=== PATIENT | male | born 1985 | race Caucasian/White ===

== ENCOUNTER 2017-09-27 05:51 | Emergency (ER) | payer SELFPAY ==
[2017-09-27 06:07] VITALS: BMI 34.0
--- NOTE | 2017-09-27 07:24 | ED PDOC ---
Arrival/HPI <Toy Vivas - Last Filed: 09/27/17 15:56> <Karis Paz - Last Filed: 09/27/17 18:10> - General Chief Complaint: Anxiety Time Seen by Provider: 09/27/17 07:03 - History of Present Illness Narrative History of Present Illness (Text): 32 year old male with no relevant PMH presents with diaphoresis and a feeling like he was going to pass out 4 hours ago. 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 He also mentioned sharp chest pain exacerbated by movement that he felt while he was working last night. He has had this pain before and has not done anything for the pain. The pain stays for an hour and comes and goes. He also reports tingling and numbness in both of his hands during his episode of chest pain last night. He reported a right sided pressure like headache that radiates to his neck, reports photophobia, nausea, and vomiting, but denies phonophobia last night, as well. He reports he had these sensations multiple times during childhood. (Toy Vivas) Past Medical History - Provider Review Nursing Documentation Reviewed: Yes - Psychiatric Hx Substance Use: No <Toy Vivas - Last Filed: 09/27/17 15:56> Family/Social History - Physician Review Nursing Documentation Reviewed: Yes Family/Social History: Unknown Family HX Smoking Status: Light Smoker < 10 Cigarettes Daily Hx Alcohol Use: No Hx Substance Use: No <Toy Vivas - Last Filed: 09/27/17 15:56> Allergies/Home Meds <Toy Vivas - Last Filed: 09/27/17 15:56> <Karis Paz - Last Filed: 09/27/17 18:10> Allergies/Adverse Reactions: Allergies No Known Allergies Allergy (Verified 09/27/17 06:07) Home Medications: Home Meds Medication Instructions Recorded Confirmed No Known Home Med 09/27/17 09/27/17 Review of Systems - Physician Review All systems were reviewed & negative as marked: Yes - Review of Systems Constitutional: Normal Eyes: Photophobia ENT: Normal Respiratory: SOB Cardiovascular: Chest Pain Gastrointestinal: Nausea Musculoskeletal: Neck Pain Skin: Normal Neurological: Headache (right sided pressure) <Toy Vivas - Last Filed: 09/27/17 15:56> Physical Exam Temperature: Afebrile Blood Pressure: Normal Pulse: Regular Respiratory Rate: Normal Appearance: Positive for: Well-Appearing Pain Distress: Mild Mental Status: Positive for: Alert and Oriented X 3, Agitated Finger Stick Blood Glucose: 99 - Systems Exam Head: Present: Atraumatic, Normocephalic Pupils: Present: PERRL Extroacular Muscles: Present: EOMI Nose (External): Present: Atraumatic Respiratory/Chest: Present: Clear to Auscultation Cardiovascular: Present: Regular Rate and Rhythm Abdomen: Present: Normal Bowel Sounds. No: Tenderness, Distention Upper Extremity: Present: Normal Inspection, Normal ROM, NORMAL PULSES Lower Extremity: Present: Normal Inspection, NORMAL PULSES, Normal ROM Neurological: Present: GCS=15, CN II-XII Intact, Speech Normal, Motor Func Grossly Intact Skin: Present: Warm, Dry, Normal Color, Other (multiple tattoos) Psychiatric: Present: Alert, Oriented x 3 <Toy Vivas - Last Filed: 09/27/17 15:56> <Karis Paz - Last Filed: 09/27/17 18:10> Vital Signs Temp Pulse Resp BP Pulse Ox 09/27/17 09:06 98 F 76 19 114/52 L 99 09/27/17 08:03 66 19 98 09/27/17 06:17 98.5 F 66 18 134/81 97 Medical Decision Making - RAD Interpretation 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 Assessment: possible panic attack, tension headache vs migrane vs cluster headache Rule out [place], pneumonia, PE, asthma exacerbation, anemia Plan: IV fluids 0.9% NS ordered for dehydration. IVP reglan and toradol for headache. Zofran IVP ordered for nausea CBC, CMP to rule out anemia and electrolyte imbalances as the cause for his symptoms. CXR ordered to rule out pneumonia, pulmonary causes for his symptoms. Urine drug screen to screen for drug abuse as cause for his symptoms. EKG to rule out [place], arrhythmia as cause for his symptoms. 09/27/17 07:47 EKG: normal sinus rhythm NC: 152 QRS: 88 QT/QTc: 398/413 Cardiac cause for symptoms seems unlikely. 09/27/17 08:30 CBC and CMP are unremarkable except for an ALT of 91, ruling out anemia and electrolyte causes for his symptoms. Chest X ray is unremarkable, ruling out pneumonia and other pulmonary causes for his symptoms. Patient can be discharged with follow up with PCP. (Toy Vivas) 09/27/17 07:43 32 year old male presents to the Emergency department for evaluation of diaphoresis and near syncopal episode. In agreement with resident note, which includes further HPI details. Patient was seen and evaluated with resident, came up with plan and treatment together. (Karis Paz) - Lab Interpretations Lab Results: 09/27/17 07:30 09/27/17 07:30 Lab Results 09/27/17 07:30: Urine Opiates Screen Negative, Urine Methadone Screen Negative, Ur Barbiturates Screen Negative, Ur Phencyclidine Scrn Negative, Ur Amphetamines Screen Negative, U Benzodiazepines Scrn Negative, U Oth Cocaine Metabols Negative, U Cannabinoids Screen Positive H 09/27/17 07:30: Sodium 141, Potassium 3.7, Chloride 102, Carbon Dioxide 27, Anion Gap 16, BUN 13, Creatinine 0.7 L, Est GFR ( Amer) > 60, Est GFR ( Non-Af Amer) > 60, Random Glucose 86, Calcium 8.9, Total Bilirubin 0.5, AST 47, ALT 91 H, Alkaline Phosphatase 48, Total Protein 7.6, Albumin 4.4, Globulin 3.2 , Albumin/Globulin Ratio 1.4 09/27/17 07:30: WBC 5.7, RBC 4.78, Hgb 14.2, Hct 41.5 L, MCV 86.8, MCH 29.7, MCHC 34.2, RDW 12.8, Plt Count 210, MPV 9.7, Gran % 49.2 L, Lymph % (Auto) 38.8 H, [place] % (Auto) 9.1 H, Eos % (Auto) 2.5, Baso % (Auto) 0.4, Gran # 2.81, Lymph # (Auto) 2.2, [place] # (Auto) 0.5, Eos # (Auto) 0.1, Baso # (Auto) 0.02 09/27/17 06:49: POC Glucose (mg/dL) 99 - RAD Interpretation Radiology Orders: 09/27/17 07:19 CHEST PORTABLE [RAD] Stat - Medication Orders Current Medication Orders: Discontinued Medications Sodium Chloride (Sodium Chloride 0.9%) 1,000 mls @ 999 mls/hr IV .Q1H1M STA Stop: 09/27/17 08:26 Last Admin: 09/27/17 07:53 Dose: 999 mls/hr eMAR Start Stop Document 09/27/17 07:53 GMI (Rec: 09/27/17 07:54 GMI [id number]) Intravenous Solution Start Date 09/27/17 Start Time 07:54 End Date 09/27/17 End time 08:58 Total Infusion Time 64 Ketorolac Tromethamine (Toradol) 15 mg IVP STAT STA Stop: 09/27/17 07:18 Last Admin: 09/27/17 07:54 Dose: 15 mg MAR Pain Assessment Document 09/27/17 07:54 GMI (Rec: 09/27/17 07:55 GMI [id number]) Pain Reassessment Is this a pain reassessment? Yes Sleep Is patient sleeping during reassessment? No Presence of Pain Presence of Pain Yes Pain Scale Used Pain Scale Used Numeric Location Upper or Lower Upper Pain Location Body Cotton Classer Description Description Acute Intensity of Pain at present 5 Pain Behavior Facial Grimacing Alleviating Factors/Management Distraction Techniques Alleviating Factors Distraction IVP Administration Document 09/27/17 07:54 GMI (Rec: 09/27/17 07:55 GMI [id number]) Charges for Administration # of IVP Administrations 1 Metoclopramide HCl (Reglan) 10 mg IVP STAT STA Stop: 09/27/17 07:18 Last Admin: 09/27/17 07:54 Dose: 10 mg IVP Administration Document 09/27/17 07:54 GMI (Rec: 09/27/17 07:54 GMI [id number]) Charges for Administration # of IVP Administrations 1 Ondansetron HCl (Zofran Inj) 4 mg IVP STAT STA Stop: 09/27/17 07:51 Last Admin: 09/27/17 07:57 Dose: 4 mg IVP Administration Document 09/27/17 07:57 GMI (Rec: 09/27/17 07:57 GMI [id number]) Charges for Administration # of IVP Administrations 1 - PA / DRAWING KILN SUPERVISOR / Resident Statement / has reviewed & agrees with the documentation as recorded. / has examined the patient and agrees with the treatment plan. <Toy Vivas - Last Filed: 09/27/17 15:56> - PA / DRAWING KILN SUPERVISOR / Resident Statement MELODY has reviewed & agrees with the documentation as recorded. / has examined the patient and agrees with the treatment plan. - Scribe Statement The provider has reviewed the documentation as recorded by the Scribe <Karis Paz - Last Filed: 09/27/17 18:10> - Scribe Statement Pavithra Mejia training under [facility] All medical record entries made by the Scribe were at my direction and personally dictated by me. I have reviewed the chart and agree that the record accurately reflects my personal performance of the history, physical exam, medical decision making, and the department course for this patient. I have also personally directed, reviewed, and agree with the discharge instructions and disposition. (Karis Paz) Disposition/Present on Arrival - Present on Arrival Any Indicators Present on Arrival: No History of DVT/PE: No History of Uncontrolled Diabetes: No Urinary Catheter: No History of Decub. Ulcer: No History Surgical Site Infection Following: None - Disposition Have Diagnosis and Disposition been Completed?: Yes Disposition Time: 08:32 Patient Plan: Discharge <Toy Vivas - Last Filed: 09/27/17 15:56> <Karis Paz - Last Filed: 09/27/17 18:10> - Disposition Diagnosis: Anxiety Disposition: HOME/ ROUTINE Condition: STABLE Additional Instructions: JAZ ANGUIANO, thank you for letting us take care of you today. Your provider was Karis Paz MD and you were treated for ANXIETY. The emergency medical care you received today was directed at your acute symptoms. You were given reglan and toradol for your headache. Chest X ray and EKG were negative. Return to the Emergency Department if your symptoms worsen, do not improve, or if you have any other problems. Please contact [facility] for follow up for your symptoms. Bring any paperwork you were given at discharge with you along with any medications you are taking to your follow up visit. Our treatment cannot replace ongoing medical care by a primary care provider outside of the emergency department. Thank you for allowing the [facility] team to be part of your care today. Referrals: [facility] [Outside] - Follow up with primary Forms: [employer] (Y[place]i)
[2017-09-27] MEDS ORDERED: Sodium Chloride 0.9% 1,000 ML IV STA (07:26)
[2017-09-27 08:03] VITALS: RESP 19
[2017-09-27 08:18] LABS: ALB/GLOB RATIO 1.4 (1.1-1.8); ALBUMIN 4.4 g/dL (3.0-4.8); ALT/SGPT 91 U/L (7-56); AST/SGOT 47 U/L (17-59); BLOOD UREA NITROGEN 13 mg/dL (7-21); CALCIUM 8.9 mg/dL (8.4-10.5); GFR AFRICAN-AMERICAN > 60; GFR NON-AFRICAN AMERICAN > 60
[2017-09-27 08:26] LABS: HEMOGLOBIN 14.2 g/dL (14.0-18.0); RBC 4.78 10^6/uL (3.5-6.1); WHITE BLOOD COUNT 5.7 10^3/ul (4.5-11.0)
[2017-09-27 08:27] LABS: BASO # 0.02 K/mm3 (0.0-2.0); BASO % 0.4 % (0.0-3.0); EOS # 0.1 (0.0-0.7); EOS % 2.5 % (1.5-5.0); GRAN # 2.81 (1.4-6.5); GRAN % 49.2 % (50.0-68.0); LYMPH # 2.2 (1.2-3.4); LYMPH % 38.8 % (22.0-35.0); MEAN CELL VOLUME 86.8 fl (80.0-105.0); MEAN CORPUSCULAR HEMOGLOBIN 29.7 pg (25.0-35.0); MEAN CORPUSCULAR HGB CONC 34.2 g/dl (31.0-37.0); MEAN PLATELET VOLUME 9.7 fl (7.0-11.0); MONO # 0.5 (0.1-0.6); MONO % 9.1 % (1.0-6.0); RED CELL DISTRIBUTION WIDTH 12.8 % (11.5-14.5)
[2017-09-27 08:32] LABS: BARBITURATES, UR NEGATIVE (NEGATIVE); BENZODIAZEPINES, UR NEGATIVE (NEGATIVE); OPIATES, UR NEGATIVE (NEGATIVE); PHENCYCLIDINE, UR NEGATIVE (NEGATIVE)
--- NOTE | 2017-09-27 08:42 | RAD ---
Date of service: 09/27/2017 HISTORY: r/o infiltrate COMPARISON: No prior. FINDINGS: LUNGS: The lungs are clear. PLEURA: No significant pleural effusion identified, no pneumothorax apparent. CARDIOVASCULAR: Normal. OSSEOUS STRUCTURES: No significant abnormalities. VISUALIZED UPPER ABDOMEN: Normal. OTHER FINDINGS: None. IMPRESSION: No active pulmonary disease.
[2017-09-27 09:08] VITALS: BP 114/52; PULSE 76; TEMP 98; O2SAT 99
--- NOTE | 2017-09-28 12:27 | CARD ---
APPROVED REPORT Date of service: 09/27/2017 EKG Measurement Heart [id number] <Conclusion> Normal sinus rhythm Normal ECG
== END 2017-09-27 09:06 | disposition home or self-care (01) ==
LOC: ED 05:51
DX: F41.9 Anxiety disorder, unspecified (principal); F17.210 Nicotine dependence, cigarettes, uncomplicated
CPT/HCPCS: 71045; 80053; 82948; 85025; 93005; 96361; 96374; 96375; 99284; G0480; J1885; J2405; J2765; J7030

== ENCOUNTER 2017-10-10 15:22 | Emergency (ER) | payer SELFPAY ==
[2017-10-10 15:24] VITALS: BMI 35.7
[2017-10-10] MEDS ORDERED: Oxycodone/Acetaminophen 5/325 mg Tab PO STA (15:39)
--- NOTE | 2017-10-10 15:43 | ED PDOC ---
Arrival/HPI - General Chief Complaint: Dental Pain Time Seen by Provider: 10/10/17 15:24 Historian: Patient - History of Present Illness Narrative History of Present Illness (Text): 10/10/17 15:40 32yo male with no pmhx who present with complaint of left upper toothache. States he had a filling that was placed recently and it fell off this afternoon. Reports sharp pain to the area. States he applied Orajel without relieve. He states that he have appointment with his Dentist on Friday. Denies any other complaint. Past Medical History - Provider Review Nursing Documentation Reviewed: Yes - Infectious Disease Hx of Infectious Diseases: None - Psychiatric Hx Substance Use: No Family/Social History - Physician Review Nursing Documentation Reviewed: Yes Family/Social History: Unknown Family HX Smoking Status: Light Smoker < 10 Cigarettes Daily Hx Alcohol Use: No Hx Substance Use: No Allergies/Home Meds Allergies/Adverse Reactions: Allergies No Known Allergies Allergy (Verified 09/27/17 06:07) Review of Systems - Physician Review All systems were reviewed & negative as marked: Yes - Review of Systems Constitutional: Normal Eyes: Normal ENT: Other (Dental pain) Respiratory: Normal Cardiovascular: Normal Gastrointestinal: Normal Genitourinary Male: Normal Musculoskeletal: Normal Skin: Normal Neurological: Normal Endocrine: Normal Hemo/Lymphatic: Normal Psychiatric: Normal Physical Exam Vital Signs Reviewed: Yes Vital Signs Temp Pulse Resp BP Pulse Ox 10/10/17 15:27 139/91 H 10/10/17 15:24 98.9 F 67 18 156/106 H 99 Temperature: Afebrile Blood Pressure: Normal Pulse: Regular Respiratory Rate: Normal Appearance: Positive for: Well-Appearing, Non-Toxic, Comfortable Pain Distress: None Mental Status: Positive for: Alert and Oriented X 3 - Systems Exam Head: Present: Atraumatic, Normocephalic Pupils: Present: PERRL Extroacular Muscles: Present: EOMI Conjunctiva: Present: Normal Mouth: Present: Moist Mucous Membranes. No: Normal Teeth (Left upper lateral incissor partially avulsed. No gingival swelling. No loose tooth) Neck: Present: Normal Range of Motion Respiratory/Chest: Present: Clear to Auscultation, Good Air Exchange. No: Respiratory Distress, Accessory Muscle Use Cardiovascular: Present: Regular Rate and Rhythm, Normal S1, S2. No: Murmurs Abdomen: No: Tenderness, Distention, Peritoneal Signs Back: Present: Normal Inspection Upper Extremity: Present: Normal Inspection. No: Cyanosis, Edema Lower Extremity: Present: Normal Inspection. No: Edema Neurological: Present: GCS=15, CN II-XII Intact, Speech Normal Skin: Present: Warm, Dry, Normal Color. No: Rashes Psychiatric: Present: Alert, Oriented x 3, Normal Insight, Normal Concentration Disposition/Present on Arrival - Present on Arrival Any Indicators Present on Arrival: No History of DVT/PE: No History of Uncontrolled Diabetes: No Urinary Catheter: No History of Decub. Ulcer: No History Surgical Site Infection Following: None - Disposition Have Diagnosis and Disposition been Completed?: Yes Diagnosis: Dental caries Disposition: HOME/ ROUTINE Disposition Time: 15:45 Patient Plan: Discharge Condition: STABLE Discharge Instructions (ExitCare): Dental Pain Additional Instructions: Follow up with your Dentist Return to ED for any new or worsening symptoms Prescriptions: Amoxicillin 875 mg PO BID #14 tab Ibuprofen [Motrin Tab] 600 mg PO Q6 #15 tab Referrals: Meghan Mcneill MD [Staff Provider] - Follow up with primary
[2017-10-10 15:46] VITALS: BP 139/91; RESP 18; TEMP 98.9
[2017-10-10 16:18] VITALS: PULSE 70; O2SAT 100
== END 2017-10-10 16:20 | disposition home or self-care (01) ==
LOC: ED 15:22
DX: K02.9 Dental caries, unspecified (principal); F17.210 Nicotine dependence, cigarettes, uncomplicated